=== PATIENT | female | born 1990 | race Caucasian/White ===

== ENCOUNTER 2016-08-05 18:49 | Emergency (ER) | payer OTHER ==
[2016-08-05 19:32] VITALS: BP 118/60; PULSE 84; TEMP 98.5; BMI 25.0
--- NOTE | 2016-08-05 21:04 | PDOC ---
History of Present Illness - General History Source: Patient Exam Limitations: No Limitations - History of Present Illness Initial Comments: 08/05/16 21:49 The patient is a 25-year-old female with no significant past medical history, and presents to the emergency department with a rash since 4 days ago. The patient reports the rash first started in both underarms, and is now progressing to her groin region. She describes the discomfort of the rash as though she has received multiple shots in her arms, with the discomfort greater in the left arm than the right arm. She reports she visited urgent care , and was given several medications that provided no relief. She reports a subjective fever. She states she has not changed her razor recently. She denies any allergies to medications or ambient triggers. She denies any recent changes in diet, soaps, or perfumes. The patient denies chest pain, shortness of breath, cough, headache and dizziness. The patient denies fever, chills, nausea, vomit, diarrhea and constipation. The patient denies dysuria, frequency, urgency and hematuria. She denies recent travel. Social History: Denies smoking or recreational drug use. <Ness Rogers - Last Filed: 08/05/16 21:49> - General History Source: Patient <Williams Barksdale - Last Filed: 08/05/16 23:34> - General Chief Complaint: Rash Stated Complaint: RASH/BURNING SENSATION/BOTH ARMS NUMB Time Seen by Provider: 08/05/16 21:04 Past History <Ness Rogers - Last Filed: 08/05/16 21:49> - Psycho/Social/Smoking Cessation Hx Suicidal Ideation: No Smoking History: Never smoked <Williams Barksdale - Last Filed: 08/05/16 23:34> - Past Medical History Allergies/Adverse Reactions: Allergies Allergy/AdvReac Type Severity Reaction Status Date / Time No Known Allergies Allergy Verified 08/05/16 19:28 Home Medications: Ambulatory Orders Hydroxyzine HCl [Atarax -] 25 mg PO TID 08/05/16 Prednisone [Deltasone -] 60 mg PO DAILY 08/05/16 Triamcinolone 0.025% Cream [Aristocort] 1 applic TP BID 08/05/16 Review of Systems - Review of Systems Able to Perform ROS?: Yes Comments:: 08/05/16 21:49 CONSTITUTIONAL: Present: +subjective fever Absent: chills, diaphoresis, generalized weakness, malaise, loss of appetite HEENT: Absent: rhinorrhea, nasal congestion, throat pain, throat swelling, difficulty swallowing, mouth swelling, ear pain, eye pain, visual Changes CARDIOVASCULAR: Absent: chest pain, syncope, palpitations, irregular heart rate, lightheadedness , peripheral edema RESPIRATORY: Absent: cough, shortness of breath, dyspnea with exertion, orthopnea, wheezing, stridor, hemoptysis GASTROINTESTINAL: Absent: abdominal pain, abdominal distension, nausea, vomiting, diarrhea, constipation, melena, hematochezia GENITOURINARY: Absent: dysuria, frequency, urgency, hesitancy, hematuria, flank pain, genital pain MUSCULOSKELETAL: Absent: myalgia, arthralgia, joint swelling SKIN: Present: +rash Absent: itching, pallor HEMATOLOGIC/IMMUNOLOGIC: Absent: easy bleeding, easy bruising, lymphadenopathy, frequent infections ENDOCRINE: Absent: unexplained weight gain, unexplained weight loss, heat intolerance, cold intolerance NEUROLOGIC: Absent: headache, focal weakness or paresthesias, dizziness, unsteady gait, seizure, mental status changes, bladder or bowel incontinence PSYCHIATRIC: Absent: anxiety, depression, suicidal or homicidal ideation, hallucinations. <Ness Rogers - Last Filed: 08/05/16 21:49> *Physical Exam - Vital Signs Last Vital Signs Temp Pulse Resp BP Pulse Ox 98.5 F 84 18 118/60 99 08/05/16 19:30 08/05/16 19:30 08/05/16 19:30 08/05/16 19:30 08/05/16 19:30 - Physical Exam Comments: 08/05/16 21:50 GENERAL: Well developed, well nourished. Awake and alert. In mild distress. HEENT: Normocephalic, atraumatic. PERRLA, EOMI. No conjunctival pallor. Sclera are non- icteric. Moist mucous membranes. Oropharynx is clear. NECK: Supple. Full ROM. No JVD. Carotid pulses 2+ and symmetric, without bruits. No thyromegaly. No lymphadenopathy. CARDIOVASCULAR: Regular rate and rhythm. No murmurs, rubs, or gallops. Distal pulses are 2+ and symmetric. PULMONARY: No evidence of respiratory distress. Lungs clear to auscultation bilaterally. No wheezing, rales or rhonchi. ABDOMINAL: Soft. Non-tender. Non-distended. No rebound or guarding. No organomegaly. Normoactive bowel sounds. MUSCULOSKELETAL Normal range of motion at all joints. No bony deformities or tenderness. No CVA tenderness. EXTREMITIES: No cyanosis. No clubbing. No edema. No calf tenderness. INTEGUMENT: + Rash. +Areas of erythema under both arms and within the groin region. Area feels tender. No open lesions or discharge. Warm and dry. Normal capillary refill. No jaundice. NEUROLOGICAL: Alert, awake, appropriate. Cranial nerves 2-12 intact. No deficits to light touch and temperature in face, upper extremities and lower extremities. No motor deficits in the in face, upper extremities and lower extremities. Normoreflexic in the upper and lower extremities. Normal speech. Toes are down-going bilaterally. Gait is normal without ataxia. PSYCHIATRIC: Cooperative. Good eye contact. Appropriate mood and affect. <Ness Rogers - Last Filed: 08/05/16 21:49> - Vital Signs Last Vital Signs Temp Pulse Resp BP Pulse Ox 98.5 F 84 18 118/60 99 08/05/16 19:30 08/05/16 19:30 08/05/16 19:30 08/05/16 19:30 08/05/16 19:30 <Williams Barksdale - Last Filed: 08/05/16 23:34> ED Treatment Course - LABORATORY CBC & Chemistry Diagram: 08/05/16 21:10 08/05/16 21:20 - ADDITIONAL ORDERS Additional order review: 08/05/16 21:10 RBC 4.57 MCV 91.7 MCHC 32.7 RDW 13.2 MPV 7.0 L Neutrophils % 88.3 H Lymphocytes % 9.6 Monocytes % 1.8 L Eosinophils % 0.0 Basophils % 0.3 <Ness Rogers - Last Filed: 08/05/16 21:49> - LABORATORY CBC & Chemistry Diagram: 08/05/16 21:10 08/05/16 21:20 <Williams Barksdale - Last Filed: 08/05/16 23:34> Medical Decision Making - Medical Decision Making 08/05/16 23:32 Dr. Barksdale: The scribe's documentation has been prepared under my direction and personally reviewed by me in its entirery. I confirm that the note above accurately reflects all work, treatment, procedures, and medical decision making performed by me. <Williams Barksdale - Last Filed: 08/05/16 23:34> *DC/Admit/Observation/Transfer - Attestations Scribe Attestion: 08/05/16 21:50 Documentation prepared by Ness Rogers, acting as medical secretary teacher for Williams Barksdale DO. <Ness Rogers - Last Filed: 08/05/16 21:49> - Discharge Dispostion Admit: No <Williams Barksdale - Last Filed: 08/05/16 23:34> Diagnosis at time of Disposition: Rash - Discharge Dispostion Disposition: HOME Condition at time of disposition: Stable - Referrals Referrals: Ce Xie MD [Staff Physician] - - Patient Instructions Printed Discharge Instructions: DI for Rash Additional Instructions: Please follow up with a urology teacher as soon as possible. Continue taking medications until advised by urology teacher differently. - Post Discharge Activity Work/School Note: Back to Work
[2016-08-05] MEDS ORDERED: KETOROLAC TROMETHAMINE 30 MG/1 ML VIAL IVPUSH ONE (21:10)
[2016-08-05] MEDS ORDERED: SODIUM CHLORIDE 1,000 ML IV STA (21:10)
[2016-08-05] MEDS ORDERED: KETOROLAC TROMETHAMINE 30 MG/1 ML VIAL ONE (21:16)
[2016-08-05 21:34] LABS: BASOPHIL 0.3 % (0-2.0); MCHC 32.7 g/dl (32.0-36.0); MEAN CELL VOLUME 91.7 fl (80-96); NEUTROPHILS 88.3 % (42.8-82.8); PLATELET COUNT 373 K/MM3 (134-434); RDW 13.2 % (11.6-15.6)
[2016-08-05 21:48] LABS: URINE APPEARANCE CLOUDY; URINE BILIRUBIN NEGATIVE (NEGATIVE); URINE COLOR YELLOW; URINE GLUCOSE (UA) 3+ (NEGATIVE); URINE KETONE TRACE (NEGATIVE); URINE NITRITE NEGATIVE (NEGATIVE); URINE UROBILINOGEN NEGATIVE E.U./dl (0.2-1.0)
[2016-08-05 21:51] LABS: URINE BLOOD 3+ (NEGATIVE); URINE LEUK ESTERASE TRACE (NEGATIVE); URINE PROTEIN 1+ (NEGATIVE)
[2016-08-05 21:52] LABS: URINE BACTERIA RARE /hpf (NONE SEEN); URINE MUCUS RARE; URINE RBC 210 /hpf (0-3); URINE WBC 16 /hpf (3-5); YEAST FEW
[2016-08-05 22:01] LABS: ALK PHOS 56 U/L (45-117); ANION GAP 4 (8-16); BILIRUBIN,TOTAL 0.2 mg/dL (0.2-1.0); CALCIUM 8.9 mg/dL (8.5-10.1); CO2 27 mmol/L (21-32); CREATININE 0.8 mg/dL (0.55-1.02); GLUCOSE,RANDOM 127 mg/dL (74-106); MAGNESIUM 2.2 mg/dL (1.8-2.4); SGOT/AST 13 U/L (15-37); SGPT/ALT 24 U/L (12-78); TOT PROT 7.6 g/dl (6.4-8.2)
[2016-08-05 22:38] LABS: ERYTHROCYTE SEDIMENTATION RATE 7 mm/hr (0-20)
[2016-08-05 23:15] LABS: URINE APPEARANCE CLOUDY; URINE BILIRUBIN NEGATIVE (NEGATIVE); URINE BLOOD NEGATIVE (NEGATIVE); URINE COLOR YELLOW; URINE GLUCOSE (UA) NEGATIVE (NEGATIVE); URINE KETONE TRACE (NEGATIVE); URINE LEUK ESTERASE NEGATIVE (NEGATIVE); URINE NITRITE NEGATIVE (NEGATIVE); URINE PROTEIN NEGATIVE (NEGATIVE); URINE UROBILINOGEN NEGATIVE E.U./dl (0.2-1.0)
[2016-08-05 23:24] LABS: C-REACTIVE PROTEIN 0.6 MG/DL (0.00-0.3)
== END 2016-08-05 23:53 | disposition home or self-care (01) ==
LOC: JER 18:49
PROC: 3E0337Z Introduction of Electrolytic and Water Balance Substance into Peripheral Vein, Percutaneous Approach (ICD-10-PCS; principal; 2016-08-05)
PROC: 3E0333Z Introduction of Anti-inflammatory into Peripheral Vein, Percutaneous Approach (ICD-10-PCS; 2016-08-05)
DX: R21 Rash and other nonspecific skin eruption (principal); R20.8 Other disturbances of skin sensation
CPT/HCPCS: 36415; 80053; 81003; 81015; 83735; 84703; 85025; 85651; 86140; 99284-25

== ENCOUNTER 2017-04-13 15:49 | Emergency (ER) | payer BC, OTHER ==
[2017-04-13 15:56] VITALS: BMI 25.0
[2017-04-13] MEDS ORDERED: KETOROLAC TROMETHAMINE 30 MG/1 ML VIAL ONE (16:16)
--- NOTE | 2017-04-13 16:17 | PDOC ---
Attending Attestation - Resident Resident Name: Linus Fischer - ED Attending Attestation I have performed the following: I have examined & evaluated the patient, The case was reviewed & discussed with the resident, I agree w/resident's findings & plan, Exceptions are as noted - HPI HPI: 04/13/17 17:12 26 yo female presents with flank pain. She was seen earlier today at an urgent care center and had a CAT scan of abdomen and pelvis revealed a 2 mm stone with mild hydronephrosis. SHe had nausea and vomiting earlier today. - Physicial Exam PE: 04/14/17 02:07 Well-nourished well-developed 18-year-old female presents with flank pain HEENT within normal limits. Lungs clear to auscultation bilaterally CVS -[id number] Abdomen soft, nontender, nondistended. flank Tenderness Neuro alert and oriented 3. No gross focal neural deficits - Medical Decision Making 04/13/17 17:14 Plan CBC, comp, urine, IV fluids, pain medications and antibiotics 04/14/17 02:05 pt given pain meds/ IVF,anti emetics and will followup with urology Kidney stones/mild hydroureter 04/14/17 02:06 04/14/17 02:06
[2017-04-13] MEDS ORDERED: ONDANSETRON 4 MG/2 ML VIAL IVPB ONE (16:25)
[2017-04-13] MEDS ORDERED: ONDANSETRON 4 MG/2 ML VIAL ONE (16:26)
[2017-04-13] MEDS ORDERED: KETOROLAC TROMETHAMINE 30 MG/1 ML VIAL IVPUSH ONE (16:28)
[2017-04-13] MEDS ORDERED: SODIUM CHLORIDE 1,000 ML IV STA (16:28)
--- NOTE | 2017-04-13 16:35 | PDOC ---
History of Present Illness - General Chief Complaint: Pain, Acute Stated Complaint: ABD/FLANK PAIN Time Seen by Provider: 04/13/17 16:08 - History of Present Illness Initial Comments: 04/13/17 16:29 26 yo F with no significant pmh who presents with abdominal pain. Pt reports new onset sharp,chronic, RLQ and rightside flank pain beginning this AM associated with nausea/vomiting, and chills. Recently seen at [facility] and with blood and signs of infection. CT ABDOMEN/PELVIS NONCON depicted right sided hydronephrosis and hydroureter 2/2 2 mm stone in distal right ureter. Pain worse with movement and refractory to OTC NSAID therapy. She denies chest pain, SOB, dysuria, constipation/diarrhea, lightheadedness. No h/o kidney stones or kidney infection. Past History - Past Medical History Allergies/Adverse Reactions: Allergies Allergy/AdvReac Type Severity Reaction Status Date / Time No Known Allergies Allergy Verified 04/13/17 15:56 Home Medications: Ambulatory Orders Ketorolac Tromethamine [Toradol] 10 mg PO TID #21 tablet 04/13/17 Sulfamethoxazole/Trimethoprim [Bactrim Ds -] 1 tab PO BID #14 tablet 04/13/17 Tamsulosin HCl [Flomax -] 0.4 mg PO DAILY #7 capsule MDD 0.4 mg 04/13/17 Kidney Stones: Yes - Psycho/Social/Smoking Cessation Hx Anxiety: No Suicidal Ideation: No Smoking History: Never smoked Hx Alcohol Use: Yes (SOCIAL) Drug/Substance Use Hx: No Substance Use Type: None Review of Systems - Review of Systems Comments:: 04/13/17 16:40 GENERAL/CONSTITUTIONAL: No fever or chills. No weakness. HEAD, EYES, EARS, NOSE AND THROAT: No change in vision. No ear pain or discharge. No sore throat.- CARDIOVASCULAR: No chest pain or shortness of breath RESPIRATORY: No cough, wheezing, or hemoptysis. GASTROINTESTINAL: + nausea/vomiting. no diarrhea or constipation. GENITOURINARY: + Rt flank pain, No dysuria, frequency, or change in urination. MUSCULOSKELETAL: No joint or muscle swelling or pain. No neck or back pain. SKIN: No rash NEUROLOGIC: No headache, vertigo, loss of consciousness, or change in strength/ sensation. ENDOCRINE: No increased thirst. No abnormal weight change HEMATOLOGIC/LYMPHATIC: No anemia, easy bleeding, or history of blood clots. ALLERGIC/IMMUNOLOGIC: No hives or skin allergy. *Physical Exam - Vital Signs Last Vital Signs Temp Pulse Resp BP Pulse Ox 97.8 F 72 20 151/97 100 04/13/17 15:53 04/13/17 15:53 04/13/17 15:53 04/13/17 15:53 04/13/17 15:53 - Physical Exam Comments: 04/13/17 16:40 GENERAL: Awake, alert, and fully oriented, in no acute distress HEAD: No signs of trauma, normocephalic, atraumatic EYES: PERRLA, EOMI, sclera anicteric, conjunctiva clear NECK: Normal ROM, supple, no lymphadenopathy, JVD, or masses LUNGS: No distress, speaks full sentences, clear to auscultation bilaterally HEART: Regular rate and rhythm, normal S1 and S2, no murmurs, rubs or gallops, peripheral pulses normal and equal bilaterally. ABDOMEN: + Right sided CVA ttp. + RLQ ttp. Soft, nontender, normoactive bowel sounds. No guarding, no rebound. No masses EXTREMITIES : Normal inspection, Normal range of motion, no edema. No clubbing or cyanosis. SKIN: Warm, Dry, normal turgor, no rashes or lesions noted. ED Treatment Course - LABORATORY CBC & Chemistry Diagram: 04/13/17 16:20 04/13/17 16:20 Medical Decision Making - Medical Decision Making 04/13/17 16:41 26 yo F with no significant pmh who presents with abdominal pain. Pt reports new onset sharp,chronic, RLQ and rightside flank pain beginning this AM associated with nausea/vomiting, and chills. Recently seen at [facility] and with blood and signs of infection. CT ABDOMEN/PELVIS NONCON depicted right sided hydronephrosis and hydroureter 2/2 2 mm stone in distal right ureter. Physical exam reveals right sided CVA ttp. Vitals stable. No h/o kidney stones or kidney infection. Ed Course: CBC, CMP UA, Urine Preg Toradol 30 mg, Zofran 4 mg 1 L NS 04/13/17 16:51 19.1 WBC 04/13/17 17:24 CMP: Unremarkable 04/13/17 18:23 Uriine: Neg nitrite, leuk esterase. *DC/Admit/Observation/Transfer Diagnosis at time of Disposition: Nephrolithiasis - Discharge Dispostion Admit: No - Prescriptions Prescriptions: Sulfamethoxazole/Trimethoprim [Bactrim Ds -] 1 tab PO BID #14 tablet Tamsulosin HCl [Flomax -] 0.4 mg PO DAILY #7 capsule MDD 0.4 mg Ketorolac Tromethamine [Toradol] 10 mg PO TID #21 tablet - Referrals Referrals: Milo Thibodeaux MD [Staff Physician] - - Patient Instructions Printed Discharge Instructions: Extracorporeal Shock Wave Lithotripsy, Kidney Stones -- Adult, Kidney Stones (Alternative Therapy) Additional Instructions: Please return to Ed if you expereince fevers/chills, nasuea/vomitting, worsening abdominal pain, blood in urine, or worsening symptoms. Please continue to take Tamsulosin PO daily, and pain management as needed. Please follow up with urology Dr. Carrillo if unable to pass stone. - Post Discharge Activity Work/School Note: Back to Work
[2017-04-13 16:38] LABS: BASOPHIL 0.4 % (0-2.0); EOSINOPHIL 0.6 % (0-4.5); MCHC 33.8 g/dl (32.0-36.0); MEAN CELL VOLUME 91.5 fl (80-96); MEAN PLT VOLUME 6.9 fl (7.5-11.1); NEUTROPHILS 86.8 % (42.8-82.8); PLATELET COUNT 311 K/MM3 (134-434); RDW 12.9 % (11.6-15.6); WHITE BLOOD COUNT 19.1 K/mm3 (4.0-10.0)
[2017-04-13] MEDS ORDERED: TAMSULOSIN HCL 0.4 MG CAP.ER.24H (FP) PO ONE (16:52)
[2017-04-13] MEDS ORDERED: SULFAMETHOXAZOLE 80 MG/TRIMETHOPRIM 16 MG/ML VIAL IVPB ONE (16:54)
[2017-04-13] MEDS ORDERED: SULFAMETHOXAZOLE/TRIMETHOPRIM 800MG/160MG D.S. TABLET PO ONE (16:58)
[2017-04-13 17:07] LABS: ALBUMIN 4.4 g/dl (3.4-5.0); ALK PHOS 63 U/L (45-117); ANION GAP 10 (8-16); BILIRUBIN,TOTAL 0.5 mg/dL (0.2-1.0); CALCIUM 8.9 mg/dL (8.5-10.1); CO2 25 mmol/L (21-32); CREATININE 0.9 mg/dL (0.55-1.02); GLUCOSE,RANDOM 118 mg/dL (74-106); SGOT/AST 16 U/L (15-37); SGPT/ALT 22 U/L (12-78); TOT PROT 7.7 g/dl (6.4-8.2)
[2017-04-13 17:18] LABS: URINE APPEARANCE TURBID; URINE BILIRUBIN NEGATIVE (NEGATIVE); URINE BLOOD NEGATIVE (NEGATIVE); URINE COLOR DKYELLOW; URINE GLUCOSE (UA) NEGATIVE (NEGATIVE); URINE KETONE 1+ (NEGATIVE); URINE LEUK ESTERASE NEGATIVE (NEGATIVE); URINE NITRITE NEGATIVE (NEGATIVE); URINE UROBILINOGEN NEGATIVE mg/dL (0.2-1.0)
[2017-04-13] MEDS ORDERED: morphine CARPU-JECT 2 MG/1 ML DISP.SYRIN IVPUSH ONE (17:19)
[2017-04-13] MEDS ORDERED: SULFAMETHOXAZOLE/TRIMETHOPRIM 800MG/160MG D.S. TABLET ONE (17:23)
[2017-04-13] MEDS ORDERED: TAMSULOSIN HCL 0.4 MG CAP.ER.24H (FP) ONE (17:23)
[2017-04-13] MEDS ORDERED: morphine CARPU-JECT 2 MG/1 ML DISP.SYRIN ONE (17:23)
[2017-04-13 17:24] LABS: URINE PROTEIN 1+ (NEGATIVE)
[2017-04-13 17:27] LABS: CALCIUM OXALATE CRYSTALS FEW /hpf (NONE SEEN); URINE BACTERIA FEW /hpf (NONE SEEN); URINE HYALINE CAST 3 /lpf; URINE MUCUS RARE; URINE RBC 20 /hpf (0-3); URINE WBC 9 /hpf (3-5)
[2017-04-13 18:10] VITALS: BP 108/54; PULSE 67; TEMP 98.1
== END 2017-04-13 18:55 | disposition home or self-care (01) ==
LOC: JER 15:49
PROC: 3E033NZ Introduction of Analgesics, Hypnotics, Sedatives into Peripheral Vein, Percutaneous Approach (ICD-10-PCS; principal; 2017-04-13)
PROC: 3E0333Z Introduction of Anti-inflammatory into Peripheral Vein, Percutaneous Approach (ICD-10-PCS; 2017-04-13)
PROC: 3E033GC Introduction of Other Therapeutic Substance into Peripheral Vein, Percutaneous Approach (ICD-10-PCS; 2017-04-13)
DX: N13.2 Hydronephrosis with renal and ureteral calculous obstruction (principal)
CPT/HCPCS: 36415; 80053; 81003; 81015; 84703; 85025; 99282-25